=== PATIENT | female | born 1975 | race Two or more races ===

== ENCOUNTER 2018-08-29 10:06 | Emergency (ER) | payer MEDICAID ==
[~2018-08-29] VITALS: Ht 170.2 cm; Wt 122.5 kg
[~2018-08-29 10:06] MED LIST: [UNRECOGNIZED DRUG - CODE]
[2018-08-29 12:48] VITALS: BP 137/81
== END 2018-08-29 13:27 | disposition home or self-care (01) ==
LOC: ER 10:06
DX: J02.9 Acute pharyngitis, unspecified (principal); E11.9 Type 2 diabetes mellitus without complications; I10 Essential (primary) hypertension; Z98.890 Other specified postprocedural states

== ENCOUNTER 2018-12-05 13:02 | Emergency (ER) | payer MEDICAID ==
[~2018-12-05] VITALS: Ht 170.2 cm; Wt 121.1 kg
[2018-12-05 13:18] VITALS: BP 164/83
[2018-12-05] MEDS ORDERED: KETOROLAC TROMETH 60MG/2ML VIAL IM ONE (14:45)
== END 2018-12-05 16:19 | disposition home or self-care (01) ==
LOC: ER 13:05
DX: S83.92XA Sprain of unspecified site of left knee, initial encounter (principal); E11.9 Type 2 diabetes mellitus without complications; I10 Essential (primary) hypertension; Z88.0 Allergy status to penicillin; Z88.6 Allergy status to analgesic agent; W19.XXXA Unspecified fall, initial encounter; Y93.89 Activity, other specified; Y92.89 Other specified places as the place of occurrence of the external cause; Y99.8 Other external cause status
CPT/HCPCS: 73562; 73590; 96372; 99283; J1885

== ENCOUNTER 2022-10-20 10:18 | Emergency (ER) | payer MEDICAID ==
[~2022-10-20] VITALS: Ht 170.2 cm; Wt 107.0 kg
[~2022-10-20 10:18] MED LIST changes: +MISC-412; -[UNRECOGNIZED DRUG - CODE]
[2022-10-20 11:02] VITALS: BP 124/78
[2022-10-20 11:25] LABS: Urine Bacteria NONE SEEN /hpf (None Seen); Urine Blood Negative /uL (Negative); Urine Mucus FEW (None Seen); Urine Specific Gravity 1.021 (1.001-1.035); Urine WBC 37 /hpf (0 - 5)
[2022-10-20] MEDS ORDERED: cefTRIAXone SOD 1,000 MG VL IM ONE (12:15)
[2022-10-20] MEDS ORDERED: KETOROLAC TROMETH 60MG/2ML VIAL IM ONE (12:15)
[2022-10-20] MEDS ORDERED: BACDST PO (12:38)
[2022-10-20] MEDS ORDERED: IBUP800T27 PO ×2 (12:38)
[2022-10-20] MEDS ORDERED: ACET-1080 PO (12:53)
== END 2022-10-20 12:52 | disposition home or self-care (01) ==
LOC: ER 10:18
DX: S39.012A Strain of muscle, fascia and tendon of lower back, initial encounter (principal); N39.0 Urinary tract infection, site not specified; E11.9 Type 2 diabetes mellitus without complications; I10 Essential (primary) hypertension; Z88.0 Allergy status to penicillin; Z88.6 Allergy status to analgesic agent; Z88.2 Allergy status to sulfonamides; X58.XXXA Exposure to other specified factors, initial encounter; Y93.89 Activity, other specified; Y92.89 Other specified places as the place of occurrence of the external cause; Y99.8 Other external cause status
CPT/HCPCS: 81001; 96372; 99284; J0696; J1885